=== PATIENT | female | born 1955 | race Caucasian/White ===

== ENCOUNTER 2021-09-08 09:26 | Emergency (ER) | payer MEDICARE ==
[~2021-09-08] VITALS: Ht 167.6 cm; Wt 77.3 kg
[~2021-09-08 09:26] MED LIST: AMLO10TA13 PO; ASPI-1071 PO; ATOR10TA PO; FURO40TA4 PO; LOP25T PO; NICO-631 TD; POTA10TA37 PO; PRED20TA PO
[2021-09-08] MEDS ORDERED: ipratropium/albuterol 3ml nebule NEB STA (09:32)
[2021-09-08] MEDS ORDERED: albuterol 2.5 MG/3 ML nebule NEB ONE (09:55)
[2021-09-08] MEDS ORDERED: dexamethasone 4mg tablet PO ONE (10:10)
[2021-09-08 11:10] VITALS: BP 152/87
[2021-09-08] MEDS ORDERED: PRED20TA PO (11:22)
[2021-09-08] MEDS ORDERED: ALBU8.5H17 INH (11:22)
== END 2021-09-08 12:04 | disposition home or self-care (01) ==
LOC: ER 09:26
DX: J45.901 Unspecified asthma with (acute) exacerbation (principal); R06.02 Shortness of breath; R05.9 Cough, unspecified; Z88.0 Allergy status to penicillin; Z88.1 Allergy status to other antibiotic agents; Z88.8 Allergy status to other drugs, medicaments and biological substances; Z91.018 Allergy to other foods; Z79.899 Other long term (current) drug therapy
CPT/HCPCS: 71045; 94640; 94760; 99283; 99284

== ENCOUNTER 2023-09-10 12:18 | Inpatient (IN) | payer MEDICARE ==
[~2023-09-10] VITALS: Ht 167.6 cm; Wt 63.0 kg
[2023-09-10] VITALS (10 sets, daily range): BP systolic 160–192; BP diastolic 87–99; PULSE 79–104; RESP 16–24; TEMP 97.2–97.6; O2SAT 93–100
--- NOTE | 2023-09-10 00:50 | NUR ---
Patient in room ORTHO 4007. I have received report from Carisa Barger and had the opportunity to ask questions and assume patient care.
[~2023-09-10 12:18] MED LIST changes: +ALBU90AE2 PO; -AMLO10TA13 PO; -ASPI-1071 PO; -ATOR10TA PO; +ATOR10TA70 PO; +CARV3.1289 PO; +CEPH500C2 PO; +FURO-149 PO; -FURO40TA4 PO; +IPRA3AMP9 IH; -LOP25T PO; +LOSA50TA64 PO; -NICO-631 TD; +PANT-47 PO; -POTA10TA37 PO; -PRED20TA PO; +SPIR25TA5 PO
[2023-09-10] MEDS ORDERED: ipratropium/albuterol 3ml nebule NEB STA ×2 (12:47→13:07)
[2023-09-10 12:48] LABS: PLATELET COUNT 171 X10'3 (140-440)
[2023-09-10 12:49] LABS: BASOPHILS % (AUTO) 0.6 % (0-1); EOSINOPHILS # (AUTO) 0.2 X10'3 (0-0.9); EOSINOPHILS % (AUTO) 1.8 % (0-6); HEMATOCRIT 41.5 % (35.0-45.0); HEMOGLOBIN 13.8 g/dl (12.0-16.0); LYMPHOCYTES # (AUTO) 1.1 X10'3 (1.1-4.8); MEAN CORPUSCULAR HEMOGLOBIN 30.3 PG (27.0-31.0); MEAN CORPUSCULAR HGB CONC 33.2 g/dL (33.0-36.5); MEAN CORPUSCULAR VOLUME 91.4 FL (78-98); MEAN PLATELET VOLUME 7.7 FL (7.4-10.4); MONOCYTES # (AUTO) 0.8 X10'3 (0-0.9); MONOCYTES % (AUTO) 8.8 % (2-12); NEUTROPHILS # (AUTO) 6.5 X10'3 (1.8-7.7); NEUTROPHILS % (AUTO) 75.8 % (42-75); RED BLOOD COUNT 4.55 X10'6 (4.20-5.60); RED CELL DISTRIBUTION WIDTH 14.8 % (11.5-14.5); WHITE BLOOD COUNT 8.6 X10'3 (4.5-11.0)
[2023-09-10] MEDS ORDERED: ipratropium/albuterol 3ml nebule NEB ONE (12:50)
[2023-09-10 13:03] LABS: ALANINE AMINOTRANSFERASE 8 U/L (12-78); ALBUMIN 3.3 G/DL (3.4-5.0); ALBUMIN/GLOBULIN RATIO 0.9 (1.1-1.5); ALKALINE PHOSPHATASE 95 IU/L (46-116); ANION GAP 5 (8-16); ASPARTATE AMINO TRANSFERASE 16 U/L (10-37); BILIRUBIN,TOTAL 0.4 MG/DL (0.1-1.0); BLOOD UREA NITROGEN 18 MG/DL (7-18); BUN/CREATININE RATIO 9.8 (10.0-20.0); CALCIUM 8.8 MG/DL (8.5-10.1); CHLORIDE 105 MMOL/L (99-107); CREATININE 1.84 MG/DL (0.40-0.90); GLUCOSE 103 MG/DL (70-104); POTASSIUM 4.5 MMOL/L (3.5-5.1); SODIUM 140 MMOL/L (135-145); TOTAL CARBON DIOXIDE 29.7 MMOL/L (24-32); TOTAL PROTEIN 6.9 G/DL (6.4-8.2); eCRCL 28 ML/MIN; eGFR 27 ML/MIN
[2023-09-10] MEDS ORDERED: methylPREDNISolone sod succ 125mg/2ml vial IV ONE (13:10)
[2023-09-10 13:13] LABS: PRO BRAIN NATRIURETIC PEPTIDE > 30000 PG/ML (0-125)
[2023-09-10] MEDS ORDERED: furosemide 10 MG/1 ML 10ml inj IV ONE (13:20)
[2023-09-10] MEDS ORDERED: labetalol 20mg/4ml (5mg/ml) syringe IV ONE (14:00)
[2023-09-10] MEDS ORDERED: albuterol 2.5 MG/3 ML nebule NEB PRN (15:05)
[2023-09-10] MEDS ORDERED: magnesium 4gm in 100ml NS 100 ML IV PRN (15:10)
[2023-09-10] MEDS ORDERED: potassium Cl 40MEQ/1/2NS 520ml 520 ML IV PRN (15:10)
[2023-09-10] MEDS ORDERED: bisacodyl 10mg suppository rectal RC PRN (15:10)
[2023-09-10] MEDS ORDERED: ondansetron/PF 4mg/2ml inj IV PRN (15:10)
[2023-09-10] MEDS ORDERED: mag hydrox/Alum hydrox/simeth 30ml oral suspension PO PRN (15:10)
[2023-09-10] MEDS ORDERED: potassium Cl 20 mEq SR tablet PO PRN ×2 (15:10)
[2023-09-10] MEDS ORDERED: magnesium 2GM in 50ml NS 50 ML IV PRN (15:10)
--- NOTE | 2023-09-10 17:45 | NUR ---
PAGER ID: [phone] MESSAGE: Chapis Alex in [phone] - just received from ED. Pt BP 183/101, HR 84. Pt has bp meds on home med rec. -Carisa [id number]
[2023-09-10] MEDS: hydrALAZINE 20mg/ml inj. IV PRN (18:33)
[2023-09-10] MEDS: ipratropium/albuterol 3ml nebule NEB SCH ×2 (18:44→23:09)
[2023-09-10] MEDS: budesonide 0.5mg/2ml UD nebule IH SCH (18:44)
--- NOTE | 2023-09-10 18:51 | NUR ---
Problems reprioritized. Patient report given, questions answered & plan of care reviewed with Gill.
[2023-09-10] MEDS: K and/or MAG REPLACEMENT MC SCH (20:00)
[2023-09-10] MEDS: docusate sod 100mg capsule PO SCH (20:00)
[2023-09-10] MEDS: acetaminophen 325mg tablet PO PRN (20:09)
[2023-09-10] MEDS: heparin, porcine 5000 units/ml vial SQ SCH (20:10)
[2023-09-10] MEDS: methylPREDNISolone sod succ/PF 40mg inj. IV SCH (20:12)
[2023-09-10] MEDS: furosemide 10 MG/1 ML 10ml inj IV SCH (20:16)
[2023-09-10] MEDS ORDERED: IPRA3AMP31 NEB (21:03)
[2023-09-10] MEDS ORDERED: FURO-149 PO (21:03)
[2023-09-10] MEDS ORDERED: CARV3.122 PO (21:03)
[2023-09-10] MEDS ORDERED: SPIR25TA5 PO (21:09)
[2023-09-10] MEDS ORDERED: LOSA-416 PO (21:09)
[2023-09-11] VITALS (18 sets, daily range): BP systolic 154–169; BP diastolic 86–94; PULSE 68–91; RESP 13–24; TEMP 97.7–99; O2SAT 93–98
[2023-09-11] MEDS: hydrALAZINE 20mg/ml inj. IV PRN (01:50)
[2023-09-11] MEDS: ipratropium/albuterol 3ml nebule NEB SCH ×6 (03:04→22:23)
[2023-09-11] MEDS: acetaminophen 325mg tablet PO PRN (03:29)
[2023-09-11 06:12] LABS: BASOPHILS % (AUTO) 0.2 % (0-1); EOSINOPHILS % (AUTO) 0 % (0-6); HEMATOCRIT 39.2 % (35.0-45.0); HEMOGLOBIN 12.9 g/dl (12.0-16.0); LYMPHOCYTES # (AUTO) 0.6 X10'3 (1.1-4.8); LYMPHOCYTES % (AUTO) 7.7 % (21-51); MEAN PLATELET VOLUME 9.2 FL (7.4-10.4); MONOCYTES # (AUTO) 0.1 X10'3 (0-0.9); MONOCYTES % (AUTO) 1.7 % (2-12); NEUTROPHILS # (AUTO) 6.8 X10'3 (1.8-7.7); NEUTROPHILS % (AUTO) 90.4 % (42-75); PLATELET COUNT 159 X10'3 (140-440); RED BLOOD COUNT 4.31 X10'6 (4.20-5.60); RED CELL DISTRIBUTION WIDTH 15.2 % (11.5-14.5); WHITE BLOOD COUNT 7.5 X10'3 (4.5-11.0)
--- NOTE | 2023-09-11 06:30 | NUR ---
Patient in room ORTHO 4013. I have received report from ANGEL Garland and had the opportunity to ask questions and assume patient care.
--- NOTE | 2023-09-11 06:38 | NUR ---
Problems reprioritized. Patient report given, questions answered & plan of care reviewed with Salty SMILEY and Sherie ORTIZ.
[2023-09-11 06:47] LABS: ALANINE AMINOTRANSFERASE 9 U/L (12-78); ALBUMIN 2.9 G/DL (3.4-5.0); ALBUMIN/GLOBULIN RATIO 0.9 (1.1-1.5); ALKALINE PHOSPHATASE 89 IU/L (46-116); ANION GAP 8 (8-16); ASPARTATE AMINO TRANSFERASE 12 U/L (10-37); BILIRUBIN,TOTAL 0.2 MG/DL (0.1-1.0); BLOOD UREA NITROGEN 28 MG/DL (7-18); BUN/CREATININE RATIO 12.7 (10.0-20.0); CALCIUM 8.3 MG/DL (8.5-10.1); CHLORIDE 102 MMOL/L (99-107); CREATININE 2.21 MG/DL (0.40-0.90); GLUCOSE 172 MG/DL (70-104); MAGNESIUM 2.1 MG/DL (1.5-2.4); POTASSIUM 4.4 MMOL/L (3.5-5.1); SODIUM 138 MMOL/L (135-145); TOTAL CARBON DIOXIDE 28.1 MMOL/L (24-32); TOTAL PROTEIN 6.2 G/DL (6.4-8.2); eCRCL 23 ML/MIN; eGFR 22 ML/MIN
[2023-09-11] MEDS: budesonide 0.5mg/2ml UD nebule IH SCH ×2 (06:56→18:56)
[2023-09-11] MEDS: methylPREDNISolone sod succ/PF 40mg inj. IV SCH ×2 (07:38→19:49)
[2023-09-11] MEDS: furosemide 10 MG/1 ML 10ml inj IV SCH ×2 (07:38→19:48)
[2023-09-11] MEDS: docusate sod 100mg capsule PO SCH ×2 (07:57→19:49)
[2023-09-11] MEDS: heparin, porcine 5000 units/ml vial SQ SCH ×2 (07:58→19:49)
[2023-09-11] MEDS ORDERED: ALBUTEROL SULFATE PO PRN (08:00)
[2023-09-11] MEDS ORDERED: ipratropium/albuterol 3ml nebule NEB PRN (08:00)
[2023-09-11] MEDS: K and/or MAG REPLACEMENT MC SCH ×2 (08:00→19:43)
[2023-09-11] MEDS: carVEDilol 3.125mg tablet PO SCH ×2 (08:20→19:50)
[2023-09-11] MEDS: losartan 50mg tablet PO SCH (08:22)
[2023-09-11] MEDS ORDERED: acetaminophen 325mg tablet PO PRN (11:15)
[2023-09-11] MEDS: HYDROcodone/acetaminophen 5mg/325mg tablet PO PRN ×2 (11:54→19:50)
--- NOTE | 2023-09-11 12:33 | NUR ---
Following this patient with BALJIT Jimenez This typewriter aligner performed own physical assessment. All other aspects of care and medication administration to be performed by patient's primary nurse Radha Quigley LVN.
--- NOTE | 2023-09-11 18:00 | NUR ---
Patient in room ORTHO 4013. I have received report from BALJIT Pond and had the opportunity to ask questions and assume patient care.
--- NOTE | 2023-09-11 18:20 | NUR ---
Problems reprioritized. Patient report given, questions answered & plan of care reviewed with ANGEL Herron.
[2023-09-11] MEDS: atorvastatin 10mg tablet PO SCH (19:49)
[2023-09-12] VITALS (17 sets, daily range): BP systolic 150–183; BP diastolic 78–101; PULSE 67–91; RESP 14–20; TEMP 97.5–99; O2SAT 92–98
[2023-09-12] MEDS: HYDROcodone/acetaminophen 5mg/325mg tablet PO PRN ×2 (02:11→21:32)
[2023-09-12] MEDS: ipratropium/albuterol 3ml nebule NEB SCH ×6 (04:03→23:05)
[2023-09-12 06:06] LABS: BASOPHILS % (AUTO) 0 % (0-1); EOSINOPHILS % (AUTO) 0 % (0-6); HEMATOCRIT 38.6 % (35.0-45.0); HEMOGLOBIN 12.4 g/dl (12.0-16.0); LYMPHOCYTES # (AUTO) 0.6 X10'3 (1.1-4.8); LYMPHOCYTES % (AUTO) 3.3 % (21-51); MEAN CORPUSCULAR HEMOGLOBIN 29.5 PG (27.0-31.0); MEAN CORPUSCULAR HGB CONC 32.2 g/dL (33.0-36.5); MEAN CORPUSCULAR VOLUME 91.7 FL (78-98); MEAN PLATELET VOLUME 9.3 FL (7.4-10.4); MONOCYTES # (AUTO) 0.1 X10'3 (0-0.9); MONOCYTES % (AUTO) 0.7 % (2-12); NEUTROPHILS # (AUTO) 16.8 X10'3 (1.8-7.7); PLATELET COUNT 182 X10'3 (140-440); RED BLOOD COUNT 4.22 X10'6 (4.20-5.60); RED CELL DISTRIBUTION WIDTH 14.7 % (11.5-14.5); WHITE BLOOD COUNT 17.5 X10'3 (4.5-11.0)
[2023-09-12 06:29] LABS: ALANINE AMINOTRANSFERASE 9 U/L (12-78); ALBUMIN/GLOBULIN RATIO 0.9 (1.1-1.5); ALKALINE PHOSPHATASE 78 IU/L (46-116); ANION GAP 6 (8-16); ASPARTATE AMINO TRANSFERASE 13 U/L (10-37); BILIRUBIN,TOTAL 0.2 MG/DL (0.1-1.0); BLOOD UREA NITROGEN 39 MG/DL (7-18); BUN/CREATININE RATIO 14.7 (10.0-20.0); CALCIUM 8.2 MG/DL (8.5-10.1); CHLORIDE 98 MMOL/L (99-107); CREATININE 2.65 MG/DL (0.40-0.90); GLUCOSE 140 MG/DL (70-104); POTASSIUM 4.9 MMOL/L (3.5-5.1); SODIUM 133 MMOL/L (135-145); TOTAL CARBON DIOXIDE 28.9 MMOL/L (24-32); TOTAL PROTEIN 6.3 G/DL (6.4-8.2); eCRCL 19 ML/MIN; eGFR 18 ML/MIN
--- NOTE | 2023-09-12 06:30 | NUR ---
Patient in room ORTHO 4013. I have received report from ANGEL Ball,and had the opportunity to ask questions and assume patient care.
--- NOTE | 2023-09-12 06:47 | NUR ---
Problems reprioritized. Patient report given, questions answered & plan of care reviewed with ANGEL Laws.
[2023-09-12] MEDS: budesonide 0.5mg/2ml UD nebule IH SCH ×2 (07:03→19:15)
[2023-09-12] MEDS: docusate sod 100mg capsule PO SCH ×2 (08:00→19:42)
[2023-09-12] MEDS: K and/or MAG REPLACEMENT MC SCH ×2 (08:00→19:48)
[2023-09-12] MEDS ORDERED: spironolactone 25 MG tablet PO SCH (08:00)
[2023-09-12] MEDS: pantoprazole 40mg Tablet.DR PO SCH (08:49)
[2023-09-12] MEDS: carVEDilol 3.125mg tablet PO SCH ×2 (08:51→19:42)
[2023-09-12] MEDS: losartan 50mg tablet PO SCH (08:51)
[2023-09-12] MEDS: heparin, porcine 5000 units/ml vial SQ SCH ×2 (08:57→19:51)
[2023-09-12] MEDS: furosemide 10 MG/1 ML 10ml inj IV SCH ×2 (09:08→19:40)
[2023-09-12] MEDS: methylPREDNISolone sod succ/PF 40mg inj. IV SCH ×2 (09:13→19:42)
--- NOTE | 2023-09-12 18:25 | NUR ---
Problems reprioritized. Patient report given, questions answered & plan of care reviewed with Gia Hays RN.
[2023-09-12] MEDS: atorvastatin 10mg tablet PO SCH (19:51)
[2023-09-13] VITALS (8 sets, daily range): BP systolic 114–135; BP diastolic 72–99; PULSE 55–87; RESP 14–20; TEMP 97.5; O2SAT 93–97
[2023-09-13] MEDS: HYDROcodone/acetaminophen 5mg/325mg tablet PO PRN (03:02)
[2023-09-13] MEDS: ipratropium/albuterol 3ml nebule NEB SCH ×3 (03:32→11:29)
--- NOTE | 2023-09-13 06:45 | NUR ---
Problems reprioritized. Patient report given, questions answered & plan of care reviewed with ANGEL DIXON.
[2023-09-13 06:51] LABS: BASOPHILS % (AUTO) 0.2 % (0-1); EOSINOPHILS % (AUTO) 0 % (0-6); HEMATOCRIT 39.8 % (35.0-45.0); HEMOGLOBIN 12.7 g/dl (12.0-16.0); LYMPHOCYTES # (AUTO) 0.6 X10'3 (1.1-4.8); MEAN CORPUSCULAR HEMOGLOBIN 29.1 PG (27.0-31.0); MEAN CORPUSCULAR HGB CONC 31.9 g/dL (33.0-36.5); MEAN CORPUSCULAR VOLUME 91.2 FL (78-98); MONOCYTES # (AUTO) 0.3 X10'3 (0-0.9); MONOCYTES % (AUTO) 1.7 % (2-12); NEUTROPHILS # (AUTO) 15.2 X10'3 (1.8-7.7); NEUTROPHILS % (AUTO) 94.1 % (42-75); PLATELET COUNT 175 X10'3 (140-440); RED BLOOD COUNT 4.36 X10'6 (4.20-5.60); RED CELL DISTRIBUTION WIDTH 14.5 % (11.5-14.5); WHITE BLOOD COUNT 16.2 X10'3 (4.5-11.0)
[2023-09-13 07:03] LABS: ALANINE AMINOTRANSFERASE 10 U/L (12-78); ALBUMIN 2.8 G/DL (3.4-5.0); ALBUMIN/GLOBULIN RATIO 0.9 (1.1-1.5); ALKALINE PHOSPHATASE 69 IU/L (46-116); ANION GAP 3 (8-16); ASPARTATE AMINO TRANSFERASE 16 U/L (10-37); BILIRUBIN,TOTAL 0.2 MG/DL (0.1-1.0); BLOOD UREA NITROGEN 49 MG/DL (7-18); BUN/CREATININE RATIO 17.1 (10.0-20.0); CHLORIDE 99 MMOL/L (99-107); CREATININE 2.86 MG/DL (0.40-0.90); GLUCOSE 137 MG/DL (70-104); MAGNESIUM 1.9 MG/DL (1.5-2.4); POTASSIUM 4.8 MMOL/L (3.5-5.1); SODIUM 132 MMOL/L (135-145); TOTAL CARBON DIOXIDE 30.4 MMOL/L (24-32); TOTAL PROTEIN 5.9 G/DL (6.4-8.2); eCRCL 18 ML/MIN; eGFR 16 ML/MIN
[2023-09-13] MEDS: hydrALAZINE 20mg/ml inj. IV PRN (07:38)
--- NOTE | 2023-09-13 07:42 | NUR ---
Ptx working w/ pt and VS BP 188/116, HR 84. Hydralazine admin IV per prn orders. Pt stated she was awakened suddenly by PTx and she was "still trying to wake up". Ptx will resume care after BP decreases.
[2023-09-13] MEDS: budesonide 0.5mg/2ml UD nebule IH SCH (07:51)
[2023-09-13] MEDS: K and/or MAG REPLACEMENT MC SCH (08:00)
[2023-09-13] MEDS: methylPREDNISolone sod succ/PF 40mg inj. IV SCH (08:07)
[2023-09-13] MEDS: pantoprazole 40mg Tablet.DR PO SCH (08:11)
[2023-09-13] MEDS: docusate sod 100mg capsule PO SCH (08:12)
[2023-09-13] MEDS: carVEDilol 3.125mg tablet PO SCH (08:12)
[2023-09-13] MEDS: losartan 50mg tablet PO SCH (08:13)
[2023-09-13] MEDS: heparin, porcine 5000 units/ml vial SQ SCH (08:19)
== END 2023-09-13 14:32 | DRG 190 ==
LOC: ER 12:18 → ED HOLD 15:13 → ORTHO 4S 16:52
PROVIDERS: ADMIT Family Medicine; ATTEND Family Medicine
DX: J44.1 Chronic obstructive pulmonary disease with (acute) exacerbation (principal); I21.A1 Myocardial infarction type 2; I50.23 Acute on chronic systolic (congestive) heart failure; I13.0 Hypertensive heart and chronic kidney disease with heart failure and stage 1 through stage 4 chronic kidney disease, or unspecified chronic kidney disease; N17.9 Acute kidney failure, unspecified; I25.10 Atherosclerotic heart disease of native coronary artery without angina pectoris; N18.9 Chronic kidney disease, unspecified; E78.00 Pure hypercholesterolemia, unspecified; I25.2 Old myocardial infarction; Z90.710 Acquired absence of both cervix and uterus; Z79.899 Other long term (current) drug therapy; Z88.8 Allergy status to other drugs, medicaments and biological substances; Z90.49 Acquired absence of other specified parts of digestive tract; Z98.891 History of uterine scar from previous surgery; Z82.49 Family history of ischemic heart disease and other diseases of the circulatory system; Z80.0 Family history of malignant neoplasm of digestive organs
CPT/HCPCS: 36415; 71045; 71250; 80053; 83735; 83880; 84484; 85025; 87081; 94640; 94760; 96374; 96375; 97161; 97530; 99291; A4615; G0378; J0360; J1644; J1940; J2920; J2930; J3490

== ENCOUNTER 2023-10-14 11:44 | Emergency (ER) | payer MEDICARE ==
[~2023-10-14] VITALS: Ht 170.2 cm; Wt 59.1 kg
[~2023-10-14 11:44] MED LIST changes: +ACET650T46 PO; +ALB0.5UD NEB; -ALBU90AE2 PO; +ATOR10TA PO; -ATOR10TA70 PO; +BISA10SU60 RC; +BUDE0.5A11 NEB; +BUDE10.2 INH; +CARV3.122 PO; -CARV3.1289 PO; -CEPH500C2 PO; +CHOL10006 PO; -FURO-149 PO; +FURO-150 PO; +HYDR-3965 PO; +IPRA3AMP31 NEB; -IPRA3AMP9 IH; +LOSA-416 PO; -LOSA50TA64 PO; +MAGN24002 PO; +NA P133E4 RC; -SPIR25TA5 PO; +THIA50TA10 PO
[2023-10-14] MEDS ORDERED: albuterol 2.5 MG/3 ML nebule NEB ONE (11:55)
[2023-10-14 11:59] VITALS: PULSE 96; RESP 26
[2023-10-14 12:04] VITALS: PULSE 87; RESP 22; O2SAT 99
[2023-10-14 12:11] LABS: BASOPHILS # (AUTO) 0.1 X10'3 (0-0.2); BASOPHILS % (AUTO) 1.4 % (0-1); EOSINOPHILS # (AUTO) 0.2 X10'3 (0-0.9); EOSINOPHILS % (AUTO) 2.6 % (0-6); HEMATOCRIT 36.7 % (35.0-45.0); HEMOGLOBIN 11.8 g/dl (12.0-16.0); LYMPHOCYTES # (AUTO) 0.9 X10'3 (1.1-4.8); LYMPHOCYTES % (AUTO) 12.7 % (21-51); MEAN CORPUSCULAR HEMOGLOBIN 29.1 PG (27.0-31.0); MEAN CORPUSCULAR HGB CONC 32.3 g/dL (33.0-36.5); MEAN PLATELET VOLUME 7.7 FL (7.4-10.4); MONOCYTES # (AUTO) 0.7 X10'3 (0-0.9); MONOCYTES % (AUTO) 9.5 % (2-12); NEUTROPHILS # (AUTO) 5.2 X10'3 (1.8-7.7); NEUTROPHILS % (AUTO) 73.8 % (42-75); PLATELET COUNT 322 X10'3 (140-440); RED BLOOD COUNT 4.08 X10'6 (4.20-5.60); RED CELL DISTRIBUTION WIDTH 14.3 % (11.5-14.5); WHITE BLOOD COUNT 7.1 X10'3 (4.5-11.0)
[2023-10-14 12:24] LABS: ALANINE AMINOTRANSFERASE 23 U/L (12-78); ALBUMIN 3.5 G/DL (3.4-5.0); ALBUMIN/GLOBULIN RATIO 0.9 (1.1-1.5); ALKALINE PHOSPHATASE 145 IU/L (46-116); ANION GAP 8 (8-16); ASPARTATE AMINO TRANSFERASE 18 U/L (10-37); BILIRUBIN,TOTAL 0.6 MG/DL (0.1-1.0); BLOOD UREA NITROGEN 24 MG/DL (7-18); BUN/CREATININE RATIO 12.8 (10.0-20.0); CALCIUM 9.1 MG/DL (8.5-10.1); CHLORIDE 103 MMOL/L (99-107); CREATININE 1.87 MG/DL (0.40-0.90); GLUCOSE 93 MG/DL (70-104); SODIUM 138 MMOL/L (135-145); TOTAL CARBON DIOXIDE 26.6 MMOL/L (24-32); TOTAL PROTEIN 7.5 G/DL (6.4-8.2); eCRCL 27 ML/MIN; eGFR 27 ML/MIN
[2023-10-14 12:40] LABS: PRO BRAIN NATRIURETIC PEPTIDE > 30000 PG/ML (0-125)
[2023-10-14] MEDS ORDERED: IPRA3AMP31 IH (12:40)
[2023-10-14] MEDS ORDERED: BUDE10.22 INH (12:40)
[2023-10-14] MEDS ORDERED: dexamethasone sod phosphate 10mg/ml inj PO STA (13:24)
[2023-10-14] MEDS ORDERED: furosemide 40mg tablet PO ONE (13:25)
[2023-10-14] MEDS ORDERED: PRED20TA PO (13:26)
[2023-10-14 15:10] VITALS: BP 167/94; PULSE 89; RESP 20; TEMP 98; O2SAT 97
== END 2023-10-14 15:14 | disposition home or self-care (01) ==
LOC: ER 11:44
DX: J44.9 Chronic obstructive pulmonary disease, unspecified (principal); I13.0 Hypertensive heart and chronic kidney disease with heart failure and stage 1 through stage 4 chronic kidney disease, or unspecified chronic kidney disease; E13.22 Other specified diabetes mellitus with diabetic chronic kidney disease; N18.9 Chronic kidney disease, unspecified
CPT/HCPCS: 36415; 71045; 80053; 83880; 84145; 84484; 85025; 93005; 94640; 99285; J1100; 94760